=== PATIENT | male | born 1955 | race American Indian/Alaskan Native ===

== ENCOUNTER 2021-04-03 20:17 | Emergency (ER) | payer MEDICARE ==
--- NOTE | 2021-04-03 20:22 | Emergency Department Report ---
ED General Adult HPI - General Chief complaint: Weakness Stated complaint: GI BLEED PUI?: No Time Seen by Provider: 04/03/21 20:18 Source: patient, EMS ( EMS documentation not available at time of chart dictation ), RN notes reviewed Mode of arrival: Stretcher Limitations: Physical Limitation - History of Present Illness Initial comments: The patient was evaluated in the emergency department for symptoms described in the history of present illness. He/she was evaluated in the context of the global COVID-19 pandemic, which necessitated consideration that the patient might be at risk for infection with the virus that causes COVID-19. Institutional protocols and algorithms that pertain to the evaluation of patients at risk for COVID-19 are in a state of rapid change based on information released by regulatory bodies including the CDC and federal and state organizations. These policies and algorithms were followed during the patient's care in the emergency department. Please note that these policies, procedures and recommendations changed on a rapid basis. EMS documentation not available at time of chart dictation This is a 66-year-old gentleman. Has a past medical history of obesity, body mass index of approximately 40, recreational alcohol consumption. The patient presents to the ER today with complaint of vomiting blood and weakness. He states he started vomiting blood about yesterday. He states he occasionally takes NSAIDs. He drinks alcohol recreationally on a daily basis, but endorses that he is not having tremors, hallucinations, and he does not want to harm himself or harm other people. He states he does not take systemic anticoagulation. He presents to the ER today with a complaint of vomiting blood and having black stool since yesterday. He reportedly had outpatient endoscopic evaluation last week by a local gastroenterology group; [facility]. However, he cannot recall the name of his processing clerk, or what his procedure demonstrated. -: Gradual, days(s) Consistency: constant Improves with: none Worsens with: none - Related Data Allergies Allergy/AdvReac Type Severity Reaction Status Date / Time shellfish derived Allergy Rash Verified 04/03/21 20:36 Sulfa (Sulfonamide Allergy Rash Verified 04/03/21 20:36 Antibiotics) ED Review of Systems ROS: Stated complaint: GI BLEED Other details as noted in HPI Constitutional: malaise, weakness, other (Patient denies loss of taste and smell) Eyes: denies: eye discharge ENT: denies: epistaxis Respiratory: denies: cough Cardiovascular: denies: chest pain Gastrointestinal: nausea, vomiting, hematemesis, melena. denies: hematochezia Musculoskeletal: myalgia Neurological: weakness Psychiatric: anxiety Hematological/Lymphatic: denies: easy bleeding ED Physical Exam - General Limitations: Physical Limitation General appearance: alert, anxious, in distress, obese - Head Head exam: Present: atraumatic, normocephalic - Eye Eye exam: Present: normal appearance, EOMI. Absent: nystagmus - ENT ENT exam: Present: normal exam, normal orophraynx, mucous membranes moist, normal external ear exam - Neck Neck exam: Present: normal inspection, full ROM. Absent: tenderness, meningismus - Respiratory Respiratory exam: Present: normal lung sounds bilaterally. Absent: respiratory distress, wheezes, rales, rhonchi, stridor, decreased breath sounds - Cardiovascular Cardiovascular Exam: Present: tachycardia, irregular rhythm, normal heart sounds. Absent: bradycardia, systolic murmur, diastolic murmur, rubs, gallop - GI/Abdominal GI/Abdominal exam: Present: soft. Absent: distended, tenderness, guarding, rebound, rigid, pulsatile mass - Rectal Rectal exam: Present: normal inspection, normal rectal tone, heme (+) stool, black stool, other (Chaperoned by nurse Moises Michelle) - Extremities Exam Extremities exam: Present: normal inspection, full ROM, other (2+ pulses noted in the bilateral upper and lower extremities. There is no palpable cord. negative Homans sign. Muscular compartments are soft. The pelvis is stable.). Absent: calf tenderness - Back Exam Back exam: Present: normal inspection, full ROM. Absent: tenderness, CVA tenderness (R), CVA tenderness (L), paraspinal tenderness, vertebral tenderness - Neurological Exam Neurological exam: Present: alert, other (No facial droop. Tongue midline. Extraocular movements intact bilaterally. Facial sensation intact to light touch in V1, V2, V3 distribution bilaterally. 5 and a 5 strength in 4 extremities. Sensation intact to light touch in 4 extremities.). Absent: motor sensory deficit - Psychiatric Psychiatric exam: Present: anxious - Skin Skin exam: Present: warm, dry, intact, normal color. Absent: rash ED Course Vital Signs 04/03/21 04/03/21 04/03/21 20:36 20:42 20:46 Temperature 97.7 F Pulse Rate 151 H 141 H 141 H Respiratory 24 16 25 H Rate Blood Pressure 88/38 103/36 Blood Pressure 103/51 [Left] O2 Sat by Pulse 98 97 97 Oximetry 04/03/21 04/03/21 04/03/21 21:00 21:16 21:30 Temperature Pulse Rate 139 H 127 H 118 H Respiratory 19 21 16 Rate Blood Pressure 113/35 128/57 120/47 Blood Pressure [Left] O2 Sat by Pulse 99 97 Oximetry 04/03/21 04/03/21 04/03/21 21:46 22:00 22:16 Temperature Pulse Rate 142 H 154 H 147 H Respiratory 21 26 H 24 Rate Blood Pressure 103/51 103/51 103/51 Blood Pressure [Left] O2 Sat by Pulse 98 99 100 Oximetry 04/03/21 04/03/21 04/03/21 22:20 22:30 22:35 Temperature 97.9 F Pulse Rate 150 H 154 H 145 H Respiratory 24 26 H 21 Rate Blood Pressure 103/51 108/48 115/46 Blood Pressure [Left] O2 Sat by Pulse 98 98 99 Oximetry 04/03/21 04/03/21 04/03/21 22:46 23:00 23:05 Temperature Pulse Rate 159 H 104 H 152 H Respiratory 24 17 22 Rate Blood Pressure 108/48 108/48 108/48 Blood Pressure [Left] O2 Sat by Pulse 98 96 97 Oximetry 04/03/21 04/03/21 04/03/21 23:06 23:16 23:30 Temperature Pulse Rate 107 H 106 H 109 H Respiratory 18 16 17 Rate Blood Pressure 108/48 108/48 108/48 Blood Pressure [Left] O2 Sat by Pulse 98 96 97 Oximetry 04/03/21 04/03/21 04/04/21 23:45 23:46 00:00 Temperature 97.9 F Pulse Rate 110 H 105 H 120 H Respiratory 21 19 16 Rate Blood Pressure 107/62 107/62 107/62 Blood Pressure [Left] O2 Sat by Pulse 98 96 98 Oximetry 04/04/21 04/04/21 04/04/21 00:16 00:30 00:46 Temperature Pulse Rate 113 H 112 H 105 H Respiratory 20 17 22 Rate Blood Pressure 107/62 107/62 107/62 Blood Pressure [Left] O2 Sat by Pulse 100 98 98 Oximetry 04/04/21 04/04/21 04/04/21 01:00 01:16 01:40 Temperature Pulse Rate 98 H 105 H 101 H Respiratory 20 20 17 Rate Blood Pressure 107/62 107/62 Blood Pressure [Left] O2 Sat by Pulse 96 96 98 Oximetry 04/04/21 01:46 Temperature Pulse Rate 97 H Respiratory 16 Rate Blood Pressure 112/67 Blood Pressure [Left] O2 Sat by Pulse 95 Oximetry - Reevaluation(s) Reevaluation #1: 04/03/21 22:00 Differential diagnosis, including the not limited to: Upper GI bleed, dehydration, metabolic acidosis, A. fib with RVR Assessment and plan: 66-year-old gentleman, with vomiting blood, melena, amenable to packed red blood cell transfusion, found to have A. fib with RVR, initially hypotensive, now blood pressure 110 systolic. Acute problem #1, presumed upper GI bleed. N.p.o. status at this time, 2 large- bore IVs established. Continue lactated Ringer's resuscitation, Protonix IV push, Protonix drip, packed red blood cell transfusion. Contacted our processing clerk on-call, Dr. Ani Ramirez, And have discussed the patient's history, physical, pertinent laboratory studies. He advises that transfer is recommended, as secondary to lack of GI laboratory nurse available regional training manager for emergent procedures, he will not be able to intervene on this patient for at least 36 hours. Therefore, we will attempt to initiate transfer to a facility that can provide definitive services not available at this facility. Acute problem #2, A. fib with RVR. Not a candidate for negative inotropes given hypotension. Patient normotensive at this time, continue IV fluid resuscitation, and start amiodarone drip/infusion. Discussed patient's history, physical, pertinent laboratory studies, EKG findings with our warehouse and receiving supervisor on- call, Dr. Galo, who is in agreement with this plan of care. We have placed a page out to [facility], to arrange transfer at this time. Reevaluation #2: 04/03/21 23:13 Patient receiving packed red blood cells. Tachycardia improving, heart rate 109 bpm. Patient gave permission to have his medical information discussed with family members. Patient and family informed of plan of care, and laboratory studies, including request for transfer. 04/03/21 23:15 It also appears the patient has converted, he is now in a sinus rhythm. Blood pressure 110 systolic. 04/03/21 23:22 Still awaiting callback from [facility]. Reached out to [facility] to explore additional options. They do not have ICU beds in their 9 campus system that can accommodate this patient at this time. 04/03/21 23:41 Have not received call back from [facility] regarding consulting or excepting physician. Have read discussed with our processing clerk, Dr. Ani Ramirez He has consultative privileges at [facility], and indicates that this patient gets transferred to [facility], he can follow in consultation. I have therefore reached out to the critical care physician temporary administrative assistant at [facility], Hina Tere, working with car mover, Dr. Regla Le. We discussed the patient's history, physical, pertinent laboratory studies and imaging studies, and current plan of care. Patient accepted to [facility] by the aforementioned clinicians. Patient updated on plan of care, and he is in agreement. ED Medical Decision Making - Lab Data Result diagrams: 04/03/21 20:36 04/03/21 20:36 Vital Signs 04/03/21 04/03/21 20:36 20:42 Temperature 97.7 F Pulse Rate 151 H 141 H Respiratory 24 16 Rate Blood Pressure 88/38 Blood Pressure 103/51 [Left] O2 Sat by Pulse 98 97 Oximetry Lab Results 04/03/21 04/03/21 04/03/21 Range/Units 20:36 20:36 20:36 WBC 13.9 H (4.5-11.0) K/mm3 RBC 2.78 L (3.65-5.03) M/mm3 Hgb 8.2 L (11.8-15.2) gm/dl Hct 24.5 L (35.5-45.6) % MCV 88 (84-94) fl MCH 30 (28-32) pg MCHC 34 (32-34) % RDW 15.6 H (13.2-15.2) % Plt Count 163 (140-440) K/mm3 Lymph % (Auto) 16.8 (13.4-35.0) % [place] % (Auto) 7.0 (0.0-7.3) % Eos % (Auto) 0.8 (0.0-4.3) % Baso % (Auto) 0.2 (0.0-1.8) % Lymph # (Auto) 2.3 (1.2-5.4) K/mm3 [place] # (Auto) 1.0 H (0.0-0.8) K/mm3 Eos # (Auto) 0.1 (0.0-0.4) K/mm3 Baso # (Auto) 0.0 (0.0-0.1) K/mm3 Seg Neutrophils % 75.2 H (40.0-70.0) % Seg Neutrophils # 10.4 H (1.8-7.7) K/mm3 PT 17.1 H (12.2-14.9) Sec. INR 1.41 H (0.87-1.13) APTT 25.4 (24.2-36.6) Sec. Sodium 139 (137-145) mmol/L Potassium 4.2 (3.6-5.0) mmol/L Chloride 106.6 (98-107) mmol/L Carbon Dioxide 17 L (22-30) mmol/L Anion Gap 20 mmol/L BUN 81 H (9-20) mg/dL Creatinine 1.9 H (0.8-1.3) mg/dL Estimated GFR 43 ml/min BUN/Creatinine Ratio 43 % Glucose 143 H (75-100) mg/dL Calcium 7.3 L (8.4-10.2) mg/dL Magnesium 1.70 (1.7-2.3) mg/dL Total Bilirubin 0.30 (0.1-1.2) mg/dL AST 10 (5-40) units/L ALT 9 (7-56) units/L Alkaline Phosphatase 28 L (35-129) units/L Ammonia (25-60) umol/L Total Protein 4.1 L (6.3-8.2) g/dL Albumin 2.8 L (3.9-5) g/dL Albumin/Globulin Ratio 2.2 % TSH (0.270-4.200) mlU/mL Salicylates (2.8-20.0) mg/dL Acetaminophen (10.0-30.0) ug/mL Plasma/Serum Alcohol (0-0.07) % Blood Type Antibody Screen Crossmatch 05/22/21 05/22/21 05/22/21 Range/Units 20:36 20:36 20:36 WBC (4.5-11.0) K/mm3 RBC (3.65-5.03) M/mm3 Hgb (11.8-15.2) gm/dl Hct (35.5-45.6) % MCV (84-94) fl MCH (28-32) pg MCHC (32-34) % RDW (13.2-15.2) % Plt Count (140-440) K/mm3 Lymph % (Auto) (13.4-35.0) % [place] % (Auto) (0.0-7.3) % Eos % (Auto) (0.0-4.3) % Baso % (Auto) (0.0-1.8) % Lymph # (Auto) (1.2-5.4) K/mm3 [place] # (Auto) (0.0-0.8) K/mm3 Eos # (Auto) (0.0-0.4) K/mm3 Baso # (Auto) (0.0-0.1) K/mm3 Seg Neutrophils % (40.0-70.0) % Seg Neutrophils # (1.8-7.7) K/mm3 PT (12.2-14.9) Sec. INR (0.87-1.13) APTT (24.2-36.6) Sec. Sodium (137-145) mmol/L Potassium (3.6-5.0) mmol/L Chloride (98-107) mmol/L Carbon Dioxide (22-30) mmol/L Anion Gap mmol/L BUN (9-20) mg/dL Creatinine (0.8-1.3) mg/dL Estimated GFR ml/min BUN/Creatinine Ratio % Glucose (75-100) mg/dL Calcium (8.4-10.2) mg/dL Magnesium (1.7-2.3) mg/dL Total Bilirubin (0.1-1.2) mg/dL AST (5-40) units/L ALT (7-56) units/L Alkaline Phosphatase (35-129) units/L Ammonia 27.0 (25-60) umol/L Total Protein (6.3-8.2) g/dL Albumin (3.9-5) g/dL Albumin/Globulin Ratio % TSH (0.270-4.200) mlU/mL Salicylates < 0.3 L (2.8-20.0) mg/dL Acetaminophen (10.0-30.0) ug/mL Plasma/Serum Alcohol (0-0.07) % Blood Type B POSITIVE Antibody Screen Negative Crossmatch See Detail 04/03/21 04/03/21 04/03/21 Range/Units 20:36 20:36 21:00 WBC (4.5-11.0) K/mm3 RBC (3.65-5.03) M/mm3 Hgb (11.8-15.2) gm/dl Hct (35.5-45.6) % MCV (84-94) fl MCH (28-32) pg MCHC (32-34) % RDW (13.2-15.2) % Plt Count (140-440) K/mm3 Lymph % (Auto) (13.4-35.0) % [place] % (Auto) (0.0-7.3) % Eos % (Auto) (0.0-4.3) % Baso % (Auto) (0.0-1.8) % Lymph # (Auto) (1.2-5.4) K/mm3 [place] # (Auto) (0.0-0.8) K/mm3 Eos # (Auto) (0.0-0.4) K/mm3 Baso # (Auto) (0.0-0.1) K/mm3 Seg Neutrophils % (40.0-70.0) % Seg Neutrophils # (1.8-7.7) K/mm3 PT (12.2-14.9) Sec. INR (0.87-1.13) APTT (24.2-36.6) Sec. Sodium (137-145) mmol/L Potassium (3.6-5.0) mmol/L Chloride (98-107) mmol/L Carbon Dioxide (22-30) mmol/L Anion Gap mmol/L BUN (9-20) mg/dL Creatinine (0.8-1.3) mg/dL Estimated GFR ml/min BUN/Creatinine Ratio % Glucose (75-100) mg/dL Calcium (8.4-10.2) mg/dL Magnesium (1.7-2.3) mg/dL Total Bilirubin (0.1-1.2) mg/dL AST (5-40) units/L ALT (7-56) units/L Alkaline Phosphatase (35-129) units/L Ammonia (25-60) umol/L Total Protein (6.3-8.2) g/dL Albumin (3.9-5) g/dL Albumin/Globulin Ratio % TSH 1.150 (0.270-4.200) mlU/mL Salicylates (2.8-20.0) mg/dL Acetaminophen 5.0 L (10.0-30.0) ug/mL Plasma/Serum Alcohol < 0.01 (0-0.07) % Blood Type Antibody Screen Crossmatch - EKG Data -: EKG Interpreted by Me EKG shows normal: sinus rhythm Rate: tachycardia - EKG Data When compared to previous EKG there are: previous EKG unavailable 04/03/21 21:59 EKG interpreted by myself at 20: 31 A. fib, 133 bpm. Normal axis, QTC 506 ms. Motion artifact. This is not a STEMI. This is an abnormal EKG. There is no prior for comparison. - Radiology Data Radiology results: pending, image reviewed Critical Care Time: Yes Critical care time in (mins) excluding proc time.: 74 Critical care attestation.: If time is entered above; I have spent that time in minutes in the direct care of this critically ill patient, excluding procedure time. ED Disposition Clinical Impression: Upper GI bleed, Atrial fibrillation with RVR, Metabolic acidosis, Renal insufficiency, Obesity (BMI 30-39.9) Disposition: [id number] [facility] IP Is pt being admited?: No Does the pt Need Aspirin: No Condition: Critical Referrals: PRIMARY CARE, [Primary Care Provider] - 3-5 Days
[2021-04-03] MEDS ORDERED: ONDANSETRON 4 MG/2 ML INJ IV ONE (20:30)
[2021-04-03] MEDS ORDERED: SODIUM CHLORIDE 0.9% 500 ML 500 ML IV ONE (20:30)
[2021-04-03] MEDS ORDERED: PANTOPRAZOLE 40 MG INJ IV ONE (20:31)
[2021-04-03] MEDS ORDERED: LACTATED RINGERS 2,000 ML IV ONE (20:31)
[2021-04-03] MEDS ORDERED: chlordiazePOXIDE 25 MG CAP PO PRN (20:32)
[2021-04-03] MEDS ORDERED: LORazepam 2 MG/ML VIAL IV PRN ×3 (20:32)
[2021-04-03] MEDS ORDERED: SODIUM CHLORIDE 0.9% 1000 ML 1,000 ML ONE (20:34)
[2021-04-03] MEDS ORDERED: PANTOPRAZOLE 80 MG in SODIUM CHLORIDE 0.9% 100 ML IV SCH (21:00)
[2021-04-03 21:06] LABS: Basophils % (Auto) 0.2 % (0.0-1.8); Eosinophils # (Auto) 0.1 K/mm3 (0.0-0.4); Eosinophils % (Auto) 0.8 % (0.0-4.3); Hematocrit 24.5 % (35.5-45.6); Hemoglobin 8.2 gm/dl (11.8-15.2); Lymphocytes # (Auto) 2.3 K/mm3 (1.2-5.4); Lymphocytes % (Auto) 16.8 % (13.4-35.0); Mean Corpuscular HGB Conc 34 % (32-34); Mean Corpuscular Volume 88 fl (84-94); Platelet Count 163 K/mm3 (140-440); Red Blood Count 2.78 M/mm3 (3.65-5.03); Red Cell Distribution Width 15.6 % (13.2-15.2)
[2021-04-03 21:19] LABS: INR 1.41 (0.87-1.13)
[2021-04-03 21:20] LABS: Partial Thromboplastin Time 25.4 Sec. (24.2-36.6)
[2021-04-03 21:30] LABS: Albumin 2.8 g/dL (3.9-5); Calcium 7.3 mg/dL (8.4-10.2)
--- NOTE | 2021-04-03 21:52 | XRay Report ---
CHEST 1 VIEW 04/03/2021 8:44 PM INDICATION / CLINICAL INFORMATION: GI Bleed. COMPARISON: None available. FINDINGS: SUPPORT DEVICES: None. HEART / MEDIASTINUM: No significant abnormality. LUNGS / PLEURA: No significant pulmonary or pleural abnormality. No pneumothorax. ADDITIONAL FINDINGS: No significant additional findings. IMPRESSION: No acute cardiopulmonary abnormality. Signer Name: Jacob Merrill MD Signed: 04/03/2021 9:48 PM Workstation Name: [id number]
[2021-04-03] MEDS ORDERED: LACTATED RINGERS 1,000 ML IV ONE (21:55)
[2021-04-03] MEDS ORDERED: AMIODARONE 900 MG in DEXTROSE 5% IN WATER 482 ML IV SCH (22:00)
[2021-04-04 02:18] VITALS: BP 112/67
--- NOTE | 2021-04-06 10:20 | Electrocardiograph Report ---
[facility] Test Date: 2021-04-03 Test Time: 20:31:39 Pat Name: BJ DIAZ Department: Room: Gender: M Carpenter: ALEXANDRE : 1955 Requested By: LUNA CEE Order Number: [id number] Reading MD: Samm Rodriguez Measurements Intervals [place] Rate: 133 P: LA: QRS: 11 QRSD: 94 T: 35 QT: 339 QTc: 506 Interpretive Statements Atrial fibrillation Borderline ST depression, diffuse leads Prolonged QT interval No previous ECG available for comparison Electronically Signed On 04-06-2021 10:20:10 EDT by Samm Rodriguez
== END 2021-04-04 02:05 | disposition short-term general hospital (02) ==
LOC: ED 20:17
DX: I48.91 Unspecified atrial fibrillation (principal); E87.2 Acidosis; K92.2 Gastrointestinal hemorrhage, unspecified; N28.9 Disorder of kidney and ureter, unspecified; E66.9 Obesity, unspecified; Z68.39 Body mass index [BMI] 39.0-39.9, adult; Z88.2 Allergy status to sulfonamides; Z91.013 Allergy to seafood
CPT/HCPCS: 36415; 36430; 71045; 80053; 82140; 83735; 84443; 85025; 85610; 85730; 86850; 86900; 86901; 86920; 93005; 96365; 96366; 96368; 96375; 99291; C9113; J0282; J2405; J7030; J7040; J7060; J7120; P9016; 80320; G0480